=== PATIENT | female | born 1935 | race Caucasian/White ===

== ENCOUNTER 2017-06-30 08:00 | Outpatient (CLI) | payer MEDICARE, MEDICAID ==
[2017-06-30 12:58] LABS: BASOPHILS # (AUTO) 0.1 10^3/uL (0.0-0.1); EOSINOPHILS # (AUTO) 0.1 10^3/uL (0.0-0.7); EOSINOPHILS % (AUTO) 1.4 %; HGB - HEMOGLOBIN 13.9 g/dL (12.0-16.0); LYMPHOCYTES # (AUTO) 2.1 10^3/uL (1.5-3.5); LYMPHOCYTES % (AUTO) 40.8 %; MEAN CORPUSCULAR HEMOGLOBIN 32.7 pg (27.0-31.0); MEAN CORPUSCULAR HGB CONC 34.2 g/dL (32.0-36.0); MEAN CORPUSCULAR VOLUME 95.5 fL (81.0-99.0); MEAN PLATELET VOLUME 9.2 fL (7.9-10.8); MONOCYTES # (AUTO) 0.4 10^3/uL (0.0-1.0); MONOCYTES % (AUTO) 6.7 %; NEUTROPHILS # (AUTO) 2.6 10^3/uL (1.5-6.6); NEUTROPHILS % (AUTO) 50.1 %; PLT - PLATELET COUNT 233 10^3/uL (130-450); RED BLOOD COUNT 4.25 10^6/uL (4.20-5.40); RED CELL DISTRIBUTION WIDTH 12.7 % (12.0-15.0); WHITE BLOOD COUNT 5.3 x10^3/uL (4.8-10.8)
[2017-06-30 13:16] LABS: ALBUMIN 4.6 g/dL (3.2-5.5); ALBUMIN/GLOBULIN RATIO 1.5 (1.0-2.2); ALKALINE PHOSPHATASE 42 IU/L (42-121); ALT ALANINE AMINOTRANSFERASE 13 IU/L (10-60); AST ASPARTATE AMINOTRANSFERASE 23 IU/L (10-42); BILIRUBIN,TOTAL 0.8 mg/dL (0.2-1.0); BUN - BLOOD UREA NITROGEN 12 mg/dL (6-20); CALCIUM 9.1 mg/dL (8.5-10.3); CARBON DIOXIDE - CO2 27 mmol/L (21-32); CHLORIDE 101 mmol/L (101-111); CHOLESTEROL 201 mg/dL; GLUCOSE 105 mg/dL (70-100); HDL CHOLESTEROL 66 mg/dL; LDL CHOLESTEROL,CALCULATED 104 mg/dL; LDL/HDL RATIO 1.6 (<4.4); SODIUM 135 mmol/L (135-145); TOTAL PROTEIN 7.6 g/dL (6.7-8.2); VLDL CHOLESTEROL 31 mg/dL
[2017-06-30 13:38] LABS: CREATININE < 0.3 mg/dL (0.4-1.0); GFR - MDRD 214 (>89)
== END 2017-06-30 08:01 | disposition home or self-care (01) ==
LOC: LAB.N 08:00
PROVIDERS: ATTEND Nurse Practitioner
DX: E78.5 Hyperlipidemia, unspecified (principal); I10 Essential (primary) hypertension
CPT/HCPCS: 36415; 80053; 80061; 83721; 85025

== ENCOUNTER 2018-08-21 08:00 | Outpatient (CLI) | payer MEDICARE, MEDICAID ==
[2018-08-21 13:11] LABS: BASOPHILS # (AUTO) 0.1 10^3/uL (0.0-0.1); BASOPHILS % (AUTO) 1.8 %; EOSINOPHILS # (AUTO) 0.1 10^3/uL (0.0-0.7); EOSINOPHILS % (AUTO) 2.4 %; HGB - HEMOGLOBIN 12.7 g/dL (12.0-16.0); LYMPHOCYTES # (AUTO) 1.1 10^3/uL (1.5-3.5); LYMPHOCYTES % (AUTO) 34.3 %; MEAN CORPUSCULAR HGB CONC 33.6 g/dL (32.0-36.0); MEAN CORPUSCULAR VOLUME 95.4 fL (81.0-99.0); MEAN PLATELET VOLUME 8.7 fL (7.9-10.8); MONOCYTES # (AUTO) 0.2 10^3/uL (0.0-1.0); MONOCYTES % (AUTO) 6.4 %; NEUTROPHILS # (AUTO) 1.8 10^3/uL (1.5-6.6); NEUTROPHILS % (AUTO) 55.1 %; PLT - PLATELET COUNT 220 10^3/uL (130-450); RED BLOOD COUNT 3.97 10^6/uL (4.20-5.40); RED CELL DISTRIBUTION WIDTH 12.8 % (12.0-15.0); WHITE BLOOD COUNT 3.3 x10^3/uL (4.8-10.8)
[2018-08-21 13:31] LABS: ALBUMIN 4.5 g/dL (3.2-5.5); ALBUMIN/GLOBULIN RATIO 1.5 (1.0-2.2); ALKALINE PHOSPHATASE 54 IU/L (42-121); ALT ALANINE AMINOTRANSFERASE 14 IU/L (10-60); AST ASPARTATE AMINOTRANSFERASE 24 IU/L (10-42); BUN - BLOOD UREA NITROGEN 12 mg/dL (6-20); CALCIUM 9.2 mg/dL (8.5-10.3); CARBON DIOXIDE - CO2 24 mmol/L (21-32); CHLORIDE 102 mmol/L (101-111); CHOL/HDL RATIO 2.5 (<4.4); CHOLESTEROL 218 mg/dL; CREATININE 0.6 mg/dL (0.4-1.0); GFR - MDRD 96 (>89); GLUCOSE 99 mg/dL (70-100); HDL CHOLESTEROL 87 mg/dL; LDL CHOLESTEROL,CALCULATED 104 mg/dL; LDL/HDL RATIO 1.2 (<4.4); SODIUM 136 mmol/L (135-145); TOTAL PROTEIN 7.6 g/dL (6.7-8.2); VLDL CHOLESTEROL 27 mg/dL
== END 2018-08-21 23:59 | disposition home or self-care (01) ==
LOC: LAB.N 08:00
PROVIDERS: ATTEND Nurse Practitioner Gerontology
DX: E78.5 Hyperlipidemia, unspecified (principal); I10 Essential (primary) hypertension
CPT/HCPCS: 36415; 80053; 80061; 83721; 85025

== ENCOUNTER 2019-06-28 10:57 | Outpatient (CLI) | payer MEDICARE, MEDICAID ==
--- NOTE | 2019-06-29 02:30 | XRAY Report ---
Reason: RIGHT KNEE PAIN Procedure Date: 06/28/2019 Accession Number: [id number] / [id number] Procedure: WCP - Knee 3 View RT CPT Code: Final Report FULL RESULT: EXAM: RIGHT KNEE RADIOGRAPHY EXAM DATE: 06/28/2019 11:31 AM. CLINICAL HISTORY: RIGHT KNEE PAIN. COMPARISON: None. TECHNIQUE: 3 views. FINDINGS: Bones: Normal. No fractures or bone lesions. Joints: There are degenerative changes at the patellofemoral articulation. Soft Tissues: There is a very large joint effusion. IMPRESSION: 1. Large joint effusion. 2. Degenerative changes. RADIA
== END 2019-06-28 23:59 | disposition home or self-care (01) ==
LOC: DI.WCP 10:57
PROVIDERS: ATTEND Family Medicine
DX: M17.11 Unilateral primary osteoarthritis, right knee (principal); M25.461 Effusion, right knee

== ENCOUNTER 2020-10-14 09:20 | Outpatient (CLI) | payer MEDICARE, MEDICAID ==
[2020-10-14 12:58] LABS: BASOPHILS # (AUTO) 0.1 10^3/uL (0.0-0.1); EOSINOPHILS # (AUTO) 0.1 10^3/uL (0.0-0.7); EOSINOPHILS % (AUTO) 1.2 %; HCT - HEMATOCRIT 37.9 % (37.0-47.0); HGB - HEMOGLOBIN 12.6 g/dL (12.0-16.0); LYMPHOCYTES # (AUTO) 1.3 10^3/uL (1.5-3.5); LYMPHOCYTES % (AUTO) 27.1 %; MEAN CORPUSCULAR HEMOGLOBIN 31.7 pg (27.0-31.0); MEAN CORPUSCULAR HGB CONC 33.2 g/dL (32.0-36.0); MEAN CORPUSCULAR VOLUME 95.5 fL (81.0-99.0); MEAN PLATELET VOLUME 10.4 fL (7.9-10.8); MONOCYTES # (AUTO) 0.2 10^3/uL (0.0-1.0); NEUTROPHILS # (AUTO) 3.2 10^3/uL (1.5-6.6); NEUTROPHILS % (AUTO) 65.5 %; PLT - PLATELET COUNT 234 10^3/uL (130-450); RED BLOOD COUNT 3.97 10^6/uL (4.20-5.40); RED CELL DISTRIBUTION WIDTH 12.1 % (12.0-15.0); WHITE BLOOD COUNT 4.8 x10^3/uL (4.8-10.8)
[2020-10-14 13:32] LABS: ALBUMIN/GLOBULIN RATIO 1.7 (1.0-2.2); ALKALINE PHOSPHATASE 60 IU/L (42-121); ALT ALANINE AMINOTRANSFERASE 11 IU/L (10-60); AST ASPARTATE AMINOTRANSFERASE 22 IU/L (10-42); BILIRUBIN,TOTAL 1.2 mg/dL (0.2-1.0); BUN - BLOOD UREA NITROGEN 14 mg/dL (6-20); CALCIUM 9.6 mg/dL (8.5-10.3); CARBON DIOXIDE - CO2 24 mmol/L (21-32); CHLORIDE 103 mmol/L (101-111); CHOL/HDL RATIO 2.5 (<4.4); CHOLESTEROL 206 mg/dL; CREATININE 0.5 mg/dL (0.4-1.0); GFR - MDRD 118 (>89); GLUCOSE 105 mg/dL (70-100); HDL CHOLESTEROL 82 mg/dL; LDL CHOLESTEROL,CALCULATED 105 mg/dL; LDL/HDL RATIO 1.3 (<4.4); POTASSIUM 4.1 mmol/L (3.5-5.0); SODIUM 137 mmol/L (135-145); TRIGLYCERIDES 97 mg/dL; VLDL CHOLESTEROL 19 mg/dL
[2020-10-14 13:49] LABS: ESTIMATED AVERAGE GLUCOSE 128 mg/dL (70-100); HEMOGLOBIN A1c% 6.1 % (4.27-6.07)
== END 2020-10-14 23:59 | disposition home or self-care (01) ==
LOC: LAB.WCP 09:20
PROVIDERS: ATTEND Family Medicine
DX: I10 Essential (primary) hypertension (principal); E78.5 Hyperlipidemia, unspecified; R73.9 Hyperglycemia, unspecified
CPT/HCPCS: 36415; 80053; 80061; 83036; 83721; 85025

== ENCOUNTER 2021-04-27 08:00 | Outpatient (CLI) | payer MEDICARE, MEDICAID ==
[2021-04-27 20:46] LABS: CALCIUM 9.5 mg/dL (8.5-10.3); CREATININE 0.7 mg/dL (0.4-1.0); POTASSIUM 4.2 mmol/L (3.5-5.0); URIC ACID 5.3 mg/dL (2.6-7.2)
== END 2021-04-27 23:59 ==
LOC: LAB.N 08:00
PROVIDERS: ATTEND Family Medicine
DX: M17.12 Unilateral primary osteoarthritis, left knee (principal)
CPT/HCPCS: 36415; 80048; 84550; 85651

== ENCOUNTER 2021-04-27 17:42 | Outpatient (CLI) | payer MEDICARE, MEDICAID ==
--- NOTE | 2021-04-28 09:16 | XRAY Report ---
PROCEDURE: Knee 3 View LT INDICATIONS: ARTHRITIS, L KNEE TECHNIQUE: 3 views of the left knee(s) were acquired. COMPARISON: None. FINDINGS: Moderate tricompartmental joint space narrowing with small marginal osteophytes and joint effusion. N o fracture or dislocation. IMPRESSION: Moderate tricompartmental degenerative change. Reviewed by: Isra Bunch MD on 04/28/2021 9:15 AM PST Approved by: Isra Bunch MD on 04/28/2021 9:15 AM PST Station ID: [id number]
== END 2021-04-27 23:59 | disposition home or self-care (01) ==
LOC: DI.N 17:42
PROVIDERS: ATTEND Family Medicine
DX: M17.12 Unilateral primary osteoarthritis, left knee (principal)

== ENCOUNTER 2021-07-22 10:42 | Outpatient (CLI) | payer MEDICARE, MEDICAID ==
--- NOTE | 2021-07-22 12:20 | DEXA Report ---
PROCEDURE: Dexa Spine and/or Hip INDICATIONS: POST MENOPAUSAL STATUS TECHNIQUE: Dual energy x-ray absorptiometry (DXA) was performed on a [employer] System. Regions measur ed are the AP Spine, femoral neck, and if needed forearm. COMPARISON: None. FINDINGS: Lumbar Spine: Bone Mineral Density 0.961 g/cm/cm,T score -1.8. Left Hip: Bone Mineral Density 0.717 g/cm/cm,T score -2.3. Left Femoral Neck: Bone Mineral Density 0.602 g/cm/cm, T score -3.1. (T score greater or equal to -1.0: NORMAL) (T score from -1.1 to -2.4: OSTEOPENIA) (T score less than or equal to -2.5 to: OSTEOPOROSIS) Impression: Osteoporosis. Patients with diagnosis of osteoporosis or osteopenia should have regular bone mineral density assess ment. For those eligible for Medicare, routine testing is allowed once every 2 years. Testing frequ ency can be increased for patients who have rapidly progressing disease or for those who are receivin g medical therapy to restore bone mass. Reviewed by: Josh Madera MD on 07/22/2021 12:18 PM PDT Approved by: Josh Madera MD on 07/22/2021 12:18 PM PDT Station ID: [id number]
== END 2021-07-22 10:43 | disposition home or self-care (01) ==
LOC: DI 10:42
PROVIDERS: ATTEND Physician Assistant
DX: M81.0 Age-related osteoporosis without current pathological fracture (principal); Z78.0 Asymptomatic menopausal state

== ENCOUNTER 2022-02-07 07:50 | Outpatient (CLI) | payer MEDICARE, MEDICAID ==
[2022-02-07 12:32] LABS: BASOPHILS # (AUTO) 0.1 10^3/uL (0.0-0.1); EOSINOPHILS # (AUTO) 0.1 10^3/uL (0.0-0.7); EOSINOPHILS % (AUTO) 2.3 %; HCT - HEMATOCRIT 36.6 % (37.0-47.0); LYMPHOCYTES # (AUTO) 2.2 10^3/uL (1.5-3.5); LYMPHOCYTES % (AUTO) 45.4 %; MEAN CORPUSCULAR HEMOGLOBIN 31.7 pg (27.0-31.0); MEAN CORPUSCULAR HGB CONC 32.8 g/dL (32.0-36.0); MEAN CORPUSCULAR VOLUME 96.6 fL (81.0-99.0); MEAN PLATELET VOLUME 11.2 fL (7.9-10.8); MONOCYTES # (AUTO) 0.3 10^3/uL (0.0-1.0); MONOCYTES % (AUTO) 6.7 %; NEUTROPHILS # (AUTO) 2.1 10^3/uL (1.5-6.6); NEUTROPHILS % (AUTO) 44.4 %; PLT - PLATELET COUNT 224 10^3/uL (130-450); RED BLOOD COUNT 3.79 10^6/uL (4.20-5.40); RED CELL DISTRIBUTION WIDTH 12.7 % (12.0-15.0); WHITE BLOOD COUNT 4.8 x10^3/uL (4.8-10.8)
[2022-02-07 12:57] LABS: ALBUMIN 4.4 g/dL (3.2-5.5); ALBUMIN/GLOBULIN RATIO 1.5 (1.0-2.2); ALKALINE PHOSPHATASE 60 IU/L (42-121); ALT ALANINE AMINOTRANSFERASE 10 IU/L (10-60); AST ASPARTATE AMINOTRANSFERASE 20 IU/L (10-42); BILIRUBIN,TOTAL 0.9 mg/dL (0.2-1.0); BUN - BLOOD UREA NITROGEN 13 mg/dL (6-20); CALCIUM 9.4 mg/dL (8.5-10.3); CARBON DIOXIDE - CO2 25 mmol/L (21-32); CHLORIDE 104 mmol/L (101-111); CHOL/HDL RATIO 2.7 (<4.4); CHOLESTEROL 197 mg/dL; CREATININE 0.6 mg/dL (0.4-1.0); GFR - MDRD 95 (>89); GLUCOSE 108 mg/dL (70-100); HDL CHOLESTEROL 72 mg/dL; LDL CHOLESTEROL,CALCULATED 97 mg/dL; LDL/HDL RATIO 1.3 (<4.4); SODIUM 136 mmol/L (135-145); TOTAL PROTEIN 7.4 g/dL (6.7-8.2); TRIGLYCERIDES 138 mg/dL; VLDL CHOLESTEROL 28 mg/dL
[2022-02-07 13:50] LABS: THYROID STIMULATING HORMONE 0.95 uIU/mL (0.34-5.60)
[2022-02-07 14:50] LABS: ESTIMATED AVERAGE GLUCOSE 123 mg/dL (70-100); HEMOGLOBIN A1c% 5.9 % (4.27-6.07)
== END 2022-02-07 07:51 | disposition home or self-care (01) ==
LOC: LAB.N 07:50
PROVIDERS: ATTEND Physician Assistant
DX: E78.5 Hyperlipidemia, unspecified (principal); R73.9 Hyperglycemia, unspecified; I10 Essential (primary) hypertension
CPT/HCPCS: 36415; 80053; 80061; 83036; 83721; 84443; 85025

== ENCOUNTER 2022-07-06 07:30 | Outpatient (CLI) | payer MEDICARE, MEDICAID ==
[2022-07-06 11:49] LABS: BASOPHILS # (AUTO) 0.1 10^3/uL (0.0-0.1); BASOPHILS % (AUTO) 0.4 %; EOSINOPHILS % (AUTO) 0.2 %; HCT - HEMATOCRIT 33.2 % (37.0-47.0); HGB - HEMOGLOBIN 10.6 g/dL (12.0-16.0); LYMPHOCYTES # (AUTO) 1.3 10^3/uL (1.5-3.5); LYMPHOCYTES % (AUTO) 9.9 %; MEAN CORPUSCULAR HEMOGLOBIN 31.2 pg (27.0-31.0); MEAN CORPUSCULAR HGB CONC 31.9 g/dL (32.0-36.0); MEAN CORPUSCULAR VOLUME 97.6 fL (81.0-99.0); MEAN PLATELET VOLUME 11.7 fL (7.9-10.8); MONOCYTES # (AUTO) 0.8 10^3/uL (0.0-1.0); MONOCYTES % (AUTO) 5.7 %; NEUTROPHILS # (AUTO) 11.3 10^3/uL (1.5-6.6); NEUTROPHILS % (AUTO) 83.2 %; PLT - PLATELET COUNT 190 10^3/uL (130-450); RED CELL DISTRIBUTION WIDTH 12.4 % (12.0-15.0); WHITE BLOOD COUNT 13.5 x10^3/uL (4.8-10.8)
[2022-07-06 12:21] LABS: ALBUMIN 3.8 g/dL (3.2-5.5); CALCIUM 8.7 mg/dL (8.5-10.3); CREATININE 0.7 mg/dL (0.4-1.0); POTASSIUM 4.2 mmol/L (3.5-5.0); TOTAL PROTEIN 7.5 g/dL (6.7-8.2)
== END 2022-07-06 07:45 | disposition home or self-care (01) ==
LOC: LAB.N 07:30
PROVIDERS: ATTEND Family Medicine
DX: R30.0 Dysuria (principal); R10.9 Unspecified abdominal pain
CPT/HCPCS: 36415; 80053; 83690; 85025; 87086

== ENCOUNTER 2022-07-06 17:45 | Outpatient (CLI) | payer MEDICARE, MEDICAID ==
[2022-07-06] MEDS ORDERED: iohexoL-300 100 ML VIAL ONE (19:00)
[2022-07-06] MEDS ORDERED: iohexoL-300 100 ML VIAL IVP ONE (19:44)
[2022-07-06] MEDS ORDERED: DIATRIZOATE MEGLU/DIATRIZO SOD 30 ML BOTTLE PO ONE (19:44)
--- NOTE | 2022-07-06 19:56 | CT Report ---
PROCEDURE: ABDOMEN/PELVIS W INDICATIONS: ABD PAIN CONTRAST: 100mL Omni 300 TECHNIQUE: After the administration of weight appropriate dose of intravenous contrast, 5 mm thick sections acqu ired from the diaphragms to the symphysis. 5 mm thick coronal and sagittal reformats were acquired. For radiation dose reduction, the following was used: automated exposure control, adjustment of mA and/or kV according to patient size. COMPARISON: None FINDINGS: Image quality: Diagnostic. Degraded by motion artifact Lung bases: Bibasilar atelectasis. Small hiatal hernia. Heart: Cardiomegaly. Atherosclerotic calcifications of the coronary arteries. Enlargement of the phyllis n pulmonary arteries. ABDOMEN: Liver: Small hepatic hypodensities are incompletely characterized, likely representing cysts or delaney ngiomas. Gallbladder:The gallbladder is not definitively visualized and may have been surgically removed. Rec ommend surgical correlation. Biliary ducts: Unremarkable. No biliary ductal dilatation. Pancreas: Pancreas is normal in contour and homogeneous in enhancement. No peripancreatic inflammati on. Spleen: Unremarkable. Adrenal Glands: No adrenal nodules. Kidneys and Ureters: Bilateral kidneys demonstrate normal size and enhancement. No hydronephrosis. Bilateral ureters are normal in course and caliber. No perinephric or periureteral stranding. Very s mall bilateral renal hypodensities are incompletely characterized but likely representing cysts. Stomach and Bowel: Stomach, small bowel loops, and colon are unremarkable. Peritoneum: Small amount of scattered ascites in the lower abdomen and pelvis. No free air. Ventral Wall: No hernia. Abdominal Nodes: No retroperitoneal or mesenteric adenopathy by size criteria. Vessels: Aorta and inferior vena cava are normal in size. Atherosclerosis. PELVIS: Pelvic Organs: The uterus appears mildly atrophic and displaced anteriorly by a large, lobular mass in the lower left pelvis measuring approximately 8.5 x 8.8 cm in axial cross sectional dimension (roby ge 72/series 4) and approximately 6.1 cm in cranial caudal dimension (image 37/series 8). This may be ovarian in origin. There is mass effect upon the adjacent bowel. Bladder: Unremarkable. Urinary bladder wall is normal for degree of distention. Pelvic Nodes: No pathologically enlarged pelvic lymph nodes. Miscellaneous: No inguinal hernias seen. Bones: No acute compression fractures. No suspicious osseous lesions. Multilevel spondylosis. IMPRESSION: 1. Large, mildly lobular mass in the lower left pelvis measuring 8.5 x 8.8 x 6.1 cm with associated m ass effect upon the adjacent structures of the lower pelvis and the uterus. Findings are suspicious f or a left ovarian neoplasm. Recommend further characterization with nonemergent contrast-enhanced pel merlin MRI. No adenopathy visualized. 2. Otherwise, no acute abnormalities identified in the abdomen or pelvis. 3. Multiple small bilateral renal and hepatic hypodensities which are incompletely characterized but likely representing cysts. 4. Cardiomegaly. 5. Hiatal hernia. Reviewed by: Josue Brown MD on 07/06/2022 7:55 PM PDT Approved by: Josue Brown MD on 07/06/2022 7:55 PM PDT Station ID: [id number]
== END 2022-07-06 17:46 | disposition home or self-care (01) ==
LOC: DI 17:45
PROVIDERS: ATTEND Family Medicine
DX: R19.00 Intra-abdominal and pelvic swelling, mass and lump, unspecified site (principal); R93.422 Abnormal radiologic findings on diagnostic imaging of left kidney; R93.421 Abnormal radiologic findings on diagnostic imaging of right kidney; R93.2 Abnormal findings on diagnostic imaging of liver and biliary tract; K44.9 Diaphragmatic hernia without obstruction or gangrene; I51.7 Cardiomegaly; R30.0 Dysuria; R10.9 Unspecified abdominal pain
CPT/HCPCS: 36415; 74177; 80053; 83690; 85025; 87086; Q9963; Q9967

== ENCOUNTER 2022-07-21 15:42 | Outpatient (CLI) | payer MEDICARE, MEDICAID ==
[~2022-07-21 15:42] MED LIST: GADOBUTROL 7.5 MMOL/7.5 ML VIAL ONE
[2022-07-21] MEDS ORDERED: GADOBUTROL 7.5 MMOL/7.5 ML VIAL IVP ONE (17:50)
--- NOTE | 2022-07-22 09:50 | MRI Report ---
PROCEDURE: ABDOMEN W/WO INDICATIONS: PELVIC MASS, KIDNEY LESION, LIVER LESION CONTRAST: GADAVIST 5.4 ML TECHNIQUE: Coronal ultra fast SE, axial 2D spoiled GE in- and [id number]; axial breath-hold T2 fast SE. Dynam ic axial ultra fast GE during the administration of contrast; post-contrast coronal ultra fast GE or 2D spoiled GE with fat saturation from the hepatic dome to the iliac crests. Optional diffusion weig hted imaging and ADC may be performed. COMPARISON: CT 07/06/2022 FINDINGS: Image quality: Good Lower chest: Lower lungs are not well evaluated on this study. There is no pleural effusion. Small ep iphrenic diverticulum and hiatal hernia. Biatrial cardiac enlargement. Solid organs: Small liver lesions are present without enhancement, compatible with cysts. No patholog ic biliary ductal dilation or pancreatic ductal dilation. Incidentally noted tiny cysts of the pancre atic tail, attention on follow-up. No splenomegaly. No adrenal nodules. There are small renal lesions, also without enhancement, compatible with cysts. Vessels and lymph nodes: No pathologic retroperitoneal or upper abdominal adenopathy by size criteria . There are atherosclerotic calcifications. No abdominal aortic aneurysm. The main portal vein is pat ent. Bowel and peritoneum: No evidence of small bowel obstruction or pathologic ascites. Body wall: Unremarkable Pelvis: Separately dictated Bones: Degenerative changes, without acute or suspicious osseous finding. IMPRESSION: No evidence of active metastatic disease or pathologic lymphadenopathy in the abdomen. Previously raghav cribed liver and renal hypodensities are compatible with benign cysts. Pelvic findings are separately dictated. Other incidental findings above. Reviewed by: Edson Licona MD on 07/22/2022 9:48 AM PDT Approved by: Edson Licona MD on 07/22/2022 9:48 AM PDT Station ID: [id number]
--- NOTE | 2022-07-22 10:05 | MRI Report ---
PROCEDURE: PELVIS W/WO INDICATIONS: PELVIC MASS, KIDNEY LESION, LIVER LESION TECHNIQUE: Pelvic MR images were obtained using multiple sequences and multiple planes with and witho ut contrast. COMPARISON: CT 07/06/2022 FINDINGS: Image quality: Good Lower abdomen: No bowel obstruction. A small amount of free fluid is present of uncertain etiology. Bladder: Unremarkable Reproductive organs: The endometrium is not well seen. The uterus is displaced anteriorly. Follicles are seen in both ovaries. On precontrast T1-weighted images, no evidence of active deep pelvic endome triosis. The cervical stroma appears more prominent than expected for age (12/03). Posterior to the uterus, there is an exophytic heterogeneous mass measuring 6.6 x 4.8 x 9.9 cm (12/06, 06/28). There are areas of low signal intensity, hypoenhancement, and high signal intensity as well. Rectum: Unremarkable Vessels and lymph nodes: No aneurysmal vessel. Pelvic wall: Unremarkable Bones: Degenerative changes without acute or suspicious abnormality. IMPRESSION: Exophytic pelvic mass posterior to uterus again seen measuring up to 9.9 x 6.6 cm, with heterogeneous signal intensity. Areas of low T2 signal are typical for fibroid. However areas of high T2 signal an d hypoenhancement are atypical, probably related to fibroid degeneration. Unfortunately, there is no imaging modality capable of excluding a focus of leiomyosarcoma. The cervix is also slightly more pro minent than expected for age (12/03). Consider correlation with direct visualization. No evidence of pelvic adenopathy or other metastatic disease in the pelvis. If intervention is not pursued, consider follow-up imaging. Reviewed by: Edson Licona MD on 07/22/2022 10:03 AM PDT Approved by: Edson Licona MD on 07/22/2022 10:03 AM PDT Station ID: [id number]
== END 2022-07-21 15:43 | disposition home or self-care (01) ==
LOC: DI 15:42
PROVIDERS: ATTEND Family Medicine
DX: N28.89 Other specified disorders of kidney and ureter (principal); K76.89 Other specified diseases of liver; R19.00 Intra-abdominal and pelvic swelling, mass and lump, unspecified site; D39.10 Neoplasm of uncertain behavior of unspecified ovary; R10.9 Unspecified abdominal pain
CPT/HCPCS: 72197; 74183; A9585

== ENCOUNTER 2022-07-29 07:18 | Outpatient (CLI) | payer MEDICARE, MEDICAID ==
[2022-07-29 12:37] LABS: ALBUMIN 4.1 g/dL (3.2-5.5); ALBUMIN/GLOBULIN RATIO 1.1 (1.0-2.2); BILIRUBIN,TOTAL 0.6 mg/dL (0.2-1.0); CREATININE 0.5 mg/dL (0.4-1.0); POTASSIUM 4.2 mmol/L (3.5-5.0); TOTAL PROTEIN 7.8 g/dL (6.7-8.2)
== END 2022-07-29 07:19 | disposition home or self-care (01) ==
LOC: LAB.N 07:18
PROVIDERS: ATTEND Physician Assistant
DX: R74.8 Abnormal levels of other serum enzymes (principal)
CPT/HCPCS: 36415; 80053

== ENCOUNTER 2022-08-17 18:00 | Outpatient (CLI) | payer MEDICARE, MEDICAID | END 2022-08-17 18:01 | disposition home or self-care (01) | LOC: LAB.N 18:00 | PROVIDERS: ATTEND Physician Assistant | DX: R19.00 Intra-abdominal and pelvic swelling, mass and lump, unspecified site (principal) | CPT/HCPCS: 36415; 86304 ==

== ENCOUNTER 2022-09-08 18:29 | Outpatient (CLI) | payer MEDICARE, MEDICAID | END 2022-09-08 18:30 | disposition home or self-care (01) | LOC: LAB.N 18:29 | PROVIDERS: ATTEND Obstetrics & Gynecology Gynecologic Oncology | DX: D39.10 Neoplasm of uncertain behavior of unspecified ovary (principal) | CPT/HCPCS: 36415; 86304 ==

== ENCOUNTER 2022-10-18 18:53 | Outpatient (CLI) | payer MEDICARE, MEDICAID | END 2022-10-18 18:54 | disposition home or self-care (01) | LOC: RT 18:53 | PROVIDERS: ATTEND Obstetrics & Gynecology Gynecologic Oncology | DX: Z01.810 Encounter for preprocedural cardiovascular examination (principal) | CPT/HCPCS: 93005 ==

== ENCOUNTER 2023-06-17 09:32 | Outpatient (CLI) | payer MEDICARE, MEDICAID | END 2023-06-17 09:33 | disposition home or self-care (01) | LOC: LAB.N 09:32 | PROVIDERS: ATTEND Obstetrics & Gynecology Gynecologic Oncology | DX: C57.02 Malignant neoplasm of left fallopian tube (principal) | CPT/HCPCS: 36415; 86304 ==